=== PATIENT | male | born 1955 | race Caucasian/White ===

== ENCOUNTER 2025-08-25 07:38 | Emergency (ER) | payer MEDICARE ==
[2025-08-25] MEDS ORDERED: Sodium Chloride 0.9% 10 ML Syringe FLUSH PRN ×2 (07:57)
[2025-08-25 08:04] LABS: BASOPHILS PERCENT AUTO 0.1 % (0.0-1.0); EOSINOPHILS PERCENT AUTO 0.0 % (1.0-3.0); LYMPHOCYTES PERCENT AUTO 4.4 % (20.5-50.1); MONOCYTES PERCENT AUTO 8.1 % (2-8); NEUTROPHILS PERCENT AUTO 87.4 % (42.2-75.2); PLATELET COUNT,PLT 221 10^3/uL (150-450); RED BLOOD CELL COUNT 4.92 10^6/uL (4.6-6.2); WHITE BLOOD CELL COUNT,WBC 12.5 10^3/uL (5.0-10.0)
[2025-08-25 08:09] LABS: INR 0.9 (0.9-1.2)
[2025-08-25 08:32] LABS: A/G RATIO 1.0; ALANINE AMINOTRANSFERASE,ALT 29.0 U/L (16-63); ASPARTATE AMNIOTRANSFERASE,AST 15.0 U/L (15-37); BILIRUBIN TOTAL 0.9 mg/dL (0.2-1.0); BLOOD UREA NITROGEN,BUN 25.0 mg/dL (7-18); CARBON DIOXIDE,CO2 26.0 mmol/L (21-32); CHLORIDE,CL 99.0 mmol/L (98-107); CREATININE 0.95 mg/dL (0.70-1.30); EST CRCL DRUG DOSING (CG) 74.71 mL/min; GLUCOSE RANDOM 191.0 mg/dL (70-99); POTASSIUM,K 4.0 mmol/L (3.5-5.1); PROTEIN TOTAL,TP 7.4 g/dL (6.4-8.2); SODIUM,NA 137.0 mmol/L (136-145)
[2025-08-25 08:33] LABS: ESTIMATED GFR 86.0 mL/min (>=60)
== END 2025-08-25 10:35 | disposition home or self-care (01) ==
LOC: DL.ED 07:38
DX: R07.9 Chest pain, unspecified (principal); C34.90 Malignant neoplasm of unspecified part of unspecified bronchus or lung; Z87.891 Personal history of nicotine dependence
CPT/HCPCS: 36415; 71045; 80053; 84484; 85025; 85379; 85610; 93005; 93010; 99284; 99285